=== PATIENT | female | born 2005 | race Caucasian/White ===

== ENCOUNTER 2024-03-21 08:00 | Emergency (ER) | payer SELFPAY ==
[~2024-03-21] VITALS: Ht 165.1 cm; Wt 72.7 kg
[2024-03-21 08:08] VITALS: BP 113/78; PULSE 91; TEMP 98.5; O2SAT 97
[2024-03-21] MEDS: MINERAL OIL 30ML BOTTLE PO ONE (08:45)
[2024-03-21 10:00] VITALS: RESP 16
== END 2024-03-21 10:52 | disposition home or self-care (01) ==
LOC: ER 08:20
DX: T16.2XXA Foreign body in left ear, initial encounter (principal); X58.XXXA Exposure to other specified factors, initial encounter; Y93.89 Activity, other specified; Y92.89 Other specified places as the place of occurrence of the external cause; Y99.8 Other external cause status
CPT/HCPCS: 69200; 99284